=== PATIENT | female | born 1985 | race Caucasian/White ===

== ENCOUNTER 2020-08-02 09:07 | Outpatient (REF) | payer MEDICAID, SELFPAY | END 2020-08-02 09:08 | disposition home or self-care (01) | LOC: HO.LAB 09:07 | PROVIDERS: Visit Provider Internal Medicine | DX: Z20.828 Contact with and (suspected) exposure to other viral communicable diseases (principal) | CPT/HCPCS: 87635 ==

== ENCOUNTER 2020-08-26 11:31 | Outpatient (REF) | payer MEDICAID, SELFPAY ==
[2020-08-27 09:47] LABS: CT PCR NOT DETECTED (Not Detect.); NG PCR NOT DETECTED (Not Detect.)
[2020-08-27 13:53] LABS: BV Int Neg Control Negative (Negative); BV Int Pos Control Positive (Positive)
== END 2020-08-26 11:32 | disposition home or self-care (01) ==
LOC: HO.LAB 11:31
PROVIDERS: Visit Provider Obstetrics & Gynecology
DX: B00.9 Herpesviral infection, unspecified (principal); Z11.3 Encounter for screening for infections with a predominantly sexual mode of transmission; Z11.8 Encounter for screening for other infectious and parasitic diseases
CPT/HCPCS: 87480; 87491; 87510; 87591; 87660; 99202

== ENCOUNTER 2020-09-18 08:59 | Outpatient (REF) | payer MEDICAID, SELFPAY ==
[2020-09-19 11:09] LABS: BV Int Neg Control Negative (Negative); BV Int Pos Control Positive (Positive)
[2020-09-25 16:43] LABS: HPV mRNA E6/E7 Not Detected (Not Detected)
== END 2020-09-18 09:00 | disposition home or self-care (01) ==
LOC: HO.LAB 08:59
PROVIDERS: Visit Provider Obstetrics & Gynecology
DX: Z01.419 Encounter for gynecological examination (general) (routine) without abnormal findings (principal); L29.2 Pruritus vulvae
CPT/HCPCS: 81003; 87480; 87510; 87624; 87660; 88142

== ENCOUNTER 2020-12-11 07:51 | Outpatient (REF) | payer MEDICAID, SELFPAY ==
--- NOTE | ~2020-12-11 | XR_ITS ---
EXAMINATION: XR SHOULDER, RIGHT CLINICAL INFORMATION: Pain right shoulder. COMPARISON: None TECHNIQUE: AP external rotation, Grashey, scapular Y, and axillary views of the right shoulder. FINDINGS: The bones and soft tissues are normal. No fracture. Glenohumeral and acromioclavicular alignment is anatomic with normal joint space. No abnormal soft tissue calcifications. XR/XR shoulder RT min 2V Impression: Unremarkable right shoulder.
== END 2020-12-11 07:52 | disposition home or self-care (01) ==
LOC: HO.XRAY 07:51
PROVIDERS: Visit Provider Orthopaedic Surgery
DX: M25.511 Pain in right shoulder (principal)
CPT/HCPCS: 73030; 99202

== ENCOUNTER 2020-12-18 15:15 | Outpatient (REF) | payer MEDICAID, SELFPAY ==
[2020-12-19 09:22] LABS: BV Int Neg Control Negative (Negative); BV Int Pos Control Positive (Positive)
[2020-12-22 12:07] LABS: HPV mRNA E6/E7 rflx Not Detected (Not Detected)
== END 2020-12-18 15:16 | disposition home or self-care (01) ==
LOC: HO.LAB 15:15
PROVIDERS: Visit Provider Obstetrics & Gynecology
DX: Z01.419 Encounter for gynecological examination (general) (routine) without abnormal findings (principal); R87.615 Unsatisfactory cytologic smear of cervix; L29.2 Pruritus vulvae; N89.8 Other specified noninflammatory disorders of vagina; Z11.3 Encounter for screening for infections with a predominantly sexual mode of transmission; Z11.8 Encounter for screening for other infectious and parasitic diseases; Z86.19 Personal history of other infectious and parasitic diseases
CPT/HCPCS: 36415; 87480; 87510; 87624; 87660; 88142; 99212

== ENCOUNTER 2020-12-19 12:40 | Outpatient (REF) | payer MEDICAID, SELFPAY ==
--- NOTE | ~2020-12-19 | FL_ITS ---
EXAMINATION: XR ARTHROGRAM SHOULDER, RIGHT CLINICAL INFORMATION: Recurrent dislocation right shoulder with stability. COMPARISON: None. TECHNIQUE: Following explaining right shoulder arthrogram procedure, benefits and risks, a written consent was obtained. Patient was placed supine on the fluoroscopy table and the anterior aspect of right shoulder joint was cleaned and draped in usual sterile manner. 1% lidocaine was injected at the puncture site. A 22-gauge spinal needle was then inserted from the skin into the joint space and 2 mL of nonionic contrast was injected. A couple of images were obtained for documentation. Subsequently, 0.1 mL of gadolinium diluted with 10 mL of saline and 1% lidocaine was injected and needle withdrawn. Complete hemostasis was achieved at the puncture site. Sterile band-aid was applied postprocedure. Patient tolerated the procedure extremely well. Postprocedure, patient was sent to MRI for further imaging. FINDINGS: Several anterior images of right shoulder obtained under fluoroscopy reveal contrast in the joint space and infraglenoid bursa. The joint space is maintained. Visualized bones and soft tissues are normal. FLUOROSCOPY TIME: 1.8 min. DOSE AREA PRODUCT: 6.58 uGy-m2 (microgray-meter squared). FL/FL arthrogram shoulder RT IMPRESSION: Successful fluoroscopy-guided right shoulder injection of diluted gadolinium for MRI evaluation.
--- NOTE | ~2020-12-19 | MR_ITS ---
EXAMINATION: MR SHOULDER WITH CONTRAST, RIGHT CLINICAL INFORMATION: Right shoulder pain, recurrent dislocation COMPARISON: Radiographs 12/11/2020 TECHNIQUE: MRI of the shoulder was performed following the intra-articular administration of a dilute gadolinium-containing solution (arthrogram) on a high-field scanner. FINDINGS: ROTATOR CUFF: Minimal ill-defined undersurface tear of the supraspinatus tendon anteriorly in the region of the critical zone on coronal image 10, with contrast extending within the distal tendon fibers posteriorly. Coronal image 8 suggests there may be a tiny bursal surface communication with trace fluid in the overlying bursa. There is also ill-defined undersurface fraying of the infraspinatus tendon, with intrasubstance extension of contrast. No muscle atrophy or fatty infiltration. BICEPS: Normal. CORACOACROMIAL ARCH: The undersurface of the acromion is curved with no subacromial spur. The acromioclavicular joint is normal. LABRUM/CAPSULE: The anterior inferior labrum is torn, blunted and slightly displaced medially along the glenoid rim. GLENOHUMERAL JOINT/MARROW: There is cartilage loss along the anterior inferior glenoid rim. No glenoid fracture. Subtle flattening of the posterior superior humeral head presumably representing a chronic Hill-Sachs deformity. MR/MR shoulder RT w con IMPRESSION: Evidence of a right or anterior inferior shoulder dislocation with tearing of the anterior inferior labrum which is blunted and medially displaced along the glenoid rim. Adjacent cartilage defect of the glenoid rim and a subtle, chronic appearing Hill-Sachs deformity. Minimal ill-defined undersurface partial tearing of the supraspinatus and infraspinatus tendons with intrasubstance extension of contrast. There may be a tiny full-thickness perforation of the supraspinatus tendon.
== END 2020-12-19 12:41 | disposition home or self-care (01) ==
LOC: HO.XRAY 12:40
PROVIDERS: Visit Provider Orthopaedic Surgery
DX: M24.411 Recurrent dislocation, right shoulder (principal); M25.311 Other instability, right shoulder; M25.312 Other instability, left shoulder
CPT/HCPCS: 23350; 73040; 73222; A9585

== ENCOUNTER → 2020-12-27 09:30 | Outpatient (BNVA) | payer MEDICAID, SELFPAY | PROVIDERS: Visit Provider Orthopaedic Surgery | DX: M24.411 Recurrent dislocation, right shoulder (principal); M25.311 Other instability, right shoulder; M25.312 Other instability, left shoulder | CPT/HCPCS: 99212 ==

== ENCOUNTER → 2020-12-30 10:31 | Outpatient (BNVA) | payer MEDICAID, SELFPAY | PROVIDERS: Visit Provider Orthopaedic Surgery | DX: M24.411 Recurrent dislocation, right shoulder (principal) | CPT/HCPCS: 99212 ==

== ENCOUNTER 2021-01-02 09:00 | Outpatient (RCR) | payer MEDICAID, SELFPAY ==
--- NOTE | 2020-12-20 16:00 | MHC.PT.EP ---
[facility] [place] Office [place] Office [place] Office [address] Sarahi Hyde [address] [phone] F: [phone] F: [phone] F: [phone] F: [phone] Physical Therapy Plan of Care Date of Evaluation: 12/20/20 Date of Surgery: NA Diagnosis: B SHLDER INSTABILITY, RECURRENT DISLOCATION R SHLDER Assessment: Pt IS 35 YO RHD F WITH HX OF RECURRENT DISLOCATION R SHLDER (REPORTS FIRST HAPPENED ABOUT 8 YRS AGO) NO PT, R SHLDER HAS DISLOCATED WITH SELF RELOCATION ABOUT 5 TIMES SINCE THEN. REPORTS NOW SIGNIF LIMITATION WITH USE R UE WITH PAIN NOTED. PRESENTS WITH LIMITED ROM R SHLDER AND LIMITED R SHLDER STRENGTH. AWAITING RESULTS OF MRI (TO SEE ORTHO IN A WEEK). STARTED Pt WITH NAVEED EXERCISE AND TAPED R SHLDER FOR MDI. WILL PROGRESS PER MRI FINDINGS AND ORTHO RECOMMENDATION IN REGARD TO SURGERY VS NON SURGERY. Frequency and Duration: The patient will be seen 2X/WK X 6 WKS (DEPENDING ON MRI/ORTHO Short Term Goals: 1. INCREASED POSTURE AWARENESS AND AWARENESS SHLDER CARE 2. SELF/HOME ASSIST KT IF INDICATED 3. I HEP WITH DC EX PLAN Twister In Goals: 1. INCREASED R SHLDER ABD 10-20 DEGREES 2. INCREASED R SHLDER STRENGTH 1/2 MM GRADE 3. DECREASED PAIN R SHLDER AT LEAST 50% WITH ADLS 4. DECREASED DISLOCATION/FEELING OF DISLOCATION Treatment Plan: Modalities to reduce pain, spasms and effusion. Manual therapy to restore motion and function. Therapeutic exercise to improve strength and flexibility. Neuromuscular re-education for posture and balance. Therapeutic activities to return to functional activities of daily living. Electronically signed by: BILL DELEON PT Please sign and return to therapist. Thank you for your referral.
--- NOTE | 2021-04-10 10:04 | MHC.PT.DC ---
[facility] [place] Office [place] Office [place] Office [address] Sarahi Hyde [address] [phone] F: [phone] F: [phone] F: [phone] F: [phone] Physical Therapy Discharge Report Diagnosis: B SHLDER INSTABILITY, RECURRENT DISLOCATION R SHLDER Date of Surgery: NA Date of Evaluation: 12/20/20 Date of Discharge: 04/10/21 Treatments to Date: 3 Cancellations to Date: No Shows to Date: Discharge Status: Patient Elected to Stop Recommend MD Follow-up Discharge Summary: AT LAST SESSION PER NOTE BY [employer]ERRA [employer] HEEL ATTACHER [pt reports shoulder surgery scheduled for January 15. States at this time L sh. feels worse than Right. [ End ] questions holding PT until after surgery. ] NO FURTHER APPTS SCHEDULED. HAS BEGUN HOME PROGRAM Electronically signed by: BILL DELEON PT Please sign and return to therapist. Thank you for your referral.
== END 2021-04-10 10:05 | disposition home or self-care (01) ==
LOC: HO.PT 09:00
PROVIDERS: PCP Internal Medicine; Visit Provider Orthopaedic Surgery
DX: M25.311 Other instability, right shoulder (principal); M25.312 Other instability, left shoulder; M24.411 Recurrent dislocation, right shoulder
CPT/HCPCS: 97110; 97140; 97162; 97535

== ENCOUNTER 2021-01-15 06:54 | Day surgery (SDC) | payer MEDICAID, SELFPAY ==
[2021-01-09 14:00] VITALS: BMI 34.5
--- NOTE | 2021-01-14 10:10 | HO.ANESPROP2 ---
Documented by User: Bere Willoughby 01/14/21 10:10 HPI - Anesthesia Eval Consult details Narrative: 35yo F for Right Shoulder Arthroscopy with Capsular Plication PMFSH Active Problems Active Problems: All Active Problems (Updated 12/11/20 @ 10:06 by Bianca Villela MD) Instability of both shoulder joints (Acute) Recurrent dislocation, right shoulder (Acute) Vulvar itching (Acute) Past Medical History Medical History Asthma Herpes genitalis in women Well woman exam with routine gynecological exam Family History Family History Father Diabetes HTN (hypertension) Dementia Mother Diabetes HTN (hypertension) Anxiety Maternal Aunt Cancer Paternal Grandfather Alzheimer disease Surgical History Surgical History History of ankle surgery Social History Social History Household Members: Children Alcohol intake: never Smoking Status: Former smoker Use of substances other than those prescribed or required for medical reasons: No Substance Use Type: Marijuana Advance Directives: No Advance Directives Information Provided: Yes Current occupation: Right Handed - [employer] / [employer] Sexual orientation: Straight/Heterosexual Gender identity: female Meds Allergies Allergy/AdvReac Type Severity Reaction Status Date / Time No Known Allergies Allergy Verified 12/30/20 10:45 [No Known Allergies*] Home Medications Medication Instructions Recorded Confirmed Last Taken Type diphenhydramine HCl 25 mg capsule 25 mg PO TID PRN 08/26/20 Unknown History sertraline 100 mg tablet 100 mg PO DAILY 12/18/20 Unknown History trazodone 50 mg tablet 50 mg PO BEDTIME PRN 12/18/20 Unknown History Exam Exam Date and Time: January 14, 2021 1010 Height,Weight and Vital Signs: Height 5 ft Weight 80.286 kg Assessment and Plan Assessment Anesthesia Assessment: Chart Reviewed Documented by User: Edie Crystal 01/15/21 08:52 [facility] Past Medical History Medical History Asthma Herpes genitalis in women Well woman exam with routine gynecological exam Family History Family History Father Diabetes HTN (hypertension) Dementia Mother Diabetes HTN (hypertension) Anxiety Maternal Aunt Cancer Paternal Grandfather Alzheimer disease Surgical History Surgical History History of ankle surgery Social History Social History Household Members: Children Alcohol intake: never Smoking Status: Former smoker Use of substances other than those prescribed or required for medical reasons: No Substance Use Type: Marijuana Advance Directives: No Advance Directives Information Provided: Yes Current occupation: Right Handed - [employer] / [employer] Sexual orientation: Straight/Heterosexual Gender identity: female Meds Allergies Allergy/AdvReac Type Severity Reaction Status Date / Time No Known Allergies Allergy Verified 12/30/20 10:45 [No Known Allergies*] Home Medications Medication Instructions Recorded Confirmed Last Taken Type diphenhydramine HCl 25 mg capsule 25 mg PO TID PRN 08/26/20 Unknown History sertraline 100 mg tablet 100 mg PO DAILY 12/18/20 Unknown History trazodone 50 mg tablet 50 mg PO BEDTIME PRN 12/18/20 Unknown History Exam Airway Mallampati Class: I TM Dist: >3cm Neck ROM: Full Heart: RrR Lungs: CtA Assessment and Plan Assessment Anesthesia Assessment: Anesthesia Plan Discussed and Chart Reviewed Final Anesthetic Review NPO: Yes ASA Class: II Final Preanesthetic Review: No Changes in Pt Med Stat and Consent Obtained/Reviewed Patient Risk: Intermediate Procedure Risk: Intermediate Anesthetic Plan Anesthetic Plan: GA and Regional Block (Right scalene block) Disposition: Standard PACU
[2021-01-15] VITALS (8 sets, daily range): BP systolic 126–149; BP diastolic 82–96; PULSE 99–113; RESP 16–18; TEMP 36.1–36.8; O2SAT 95–99
[2021-01-15 07:19] LABS: UPreg QC Valid YES; Urine Pregnancy NEGATIVE (NEGATIVE)
[2021-01-15] MEDS: Lactated Ringers 1,000 ML 100 ML IVCONT (07:32)
--- NOTE | 2021-01-15 10:59 | P.BOP_ITS ---
Brief Operative Note Date of Service: 01/15/21 Pre-op diagnosis: right shoulder instability Post-op diagnosis: same Procedure: right shoulder capsular plication Implants: [employer] micropraptor X2 Surgeon: Kaushik Lainez MD Anesthesia: GETA and regional Loss Prevention Guard: Catarina Castaneda Estimated blood loss (mL): 5 Tourniquet time (min): 0 IV fluids (mL): 600 Pathology: none sent Condition: stable Disposition: PACU
--- NOTE | 2021-01-15 11:01 | W.PM.OPN ---
Operative Note Operative Note Date of Service: 01/15/21 Narrative: Pre-op diagnosis: right shoulder instability Post-op diagnosis: same Procedure: right shoulder capsular plication Implants: Peoples and nephew micropraptor X2 Surgeon: Kaushik Lainez MD Anesthesia: GETA and regional Automated [employer] Systems Technician: Catarina Castaneda Estimated blood loss (mL): 5 Tourniquet time (min): 0 IV fluids (mL): 600 Pathology: none sent Condition: stable Disposition: PACU Indications: this is a 35 yo F with recurrent instability of her right shoulder who was consented to undergo a right shoulder capsular plication Procedure in detail: Patient was brought to the operating room and placed the the beach chair position. All bony prominences were well padded and he was prepped and draped in standard sterile fashion. A time out was called to identify proper site, proper procedure and proper surgeon. IV antibiotics per weight were administered. She has 2+ anterior translation on stability testing. I began by making a posterolateral stab incision with a 15 blade. A blunt trochar was placed into the glenohumeral joint and insufflated the joint with saline and a 30 degree arthroscope was placed. I established an outside- in anterior portal just superior to the subscapularis tendon. I then began my inspection of the glenohumeral joint. There was a hill sachs lesion and a large drive though sign with an absent anterior labrum. Biceps anchor, superior and posterior labrum were intact. There was an intact rotator cuff and the subscapulais was intact I began by using a small treva to treva down the anterior face of the glenoid from 3-6 o:clock. Once this was done I used a suture passer to grab the inferior gh ligament and anterior capsular tissue. I then used a micro-raptor PEEK suture anchor at the 5 oclock position establishing a good bumper of tissue. I then repeated this at the three oclock position with two more suture tape through the anterior labro/capsular tissue. All anchors were buried in subchondral bone and the drive through sign was negative. I took my final pictures and removed all instrumentation. Nylon was used to close and the patient was placed in sterile dressing and extubated and brought to the recovery room in stable condition and there were no known complications.
[2021-01-15] MEDS: Ketorolac Tromethamine 15 MG/ML VIAL IVPUSH (12:21)
[2021-01-15] MEDS: oxyCODONE HCl Immed Release 5 MG TABLET PO (12:21)
--- NOTE | 2021-01-15 13:43 | PC.NURSE ---
Patient advised to call MD office regarding prescription for oxycodone. Pt states it was not covered by insurance according to [facility] pharmacy. [facility] stated MD needed to send Authorization
== END 2021-01-15 13:20 | disposition home or self-care (01) ==
PROVIDERS: Nurse Practitioner; Visit Provider Orthopaedic Surgery
PROC: (CPT 29805; principal; 2021-01-15 08:30)
DX: M24.411 Recurrent dislocation, right shoulder (principal); M25.311 Other instability, right shoulder
CPT/HCPCS: 29806; 81025; J0171; J0690; J1100; J1885; J2250; J2405; J3010

== ENCOUNTER → 2021-01-23 13:11 | Outpatient (BNVA) | payer MEDICAID, SELFPAY | PROVIDERS: Visit Provider Physician Assistant | DX: M24.411 Recurrent dislocation, right shoulder (principal) | CPT/HCPCS: 99212 ==

== ENCOUNTER → 2021-02-27 10:44 | Outpatient (BNVA) | payer MEDICAID, SELFPAY | PROVIDERS: PCP Internal Medicine; Visit Provider Orthopaedic Surgery | DX: M24.411 Recurrent dislocation, right shoulder (principal); M25.311 Other instability, right shoulder; M25.312 Other instability, left shoulder | CPT/HCPCS: 99212 ==

== ENCOUNTER 2021-03-06 10:00 | Outpatient (RCR) | payer MEDICAID, SELFPAY ==
--- NOTE | 2021-02-10 10:25 | MHC.PT.EP ---
[facility] [place] Office [place] Office [place] Office [address] Sarahi Hyde [address] [phone] F: [phone] F: [phone] F: [phone] F: [phone] Physical Therapy Plan of Care Date of Evaluation: Date of Surgery: 01/15/21 Diagnosis: Recurrent dislocation, R shoulder S/P R shoulder capsular plication 01/15/21 Assessment: 35 year old female referred for s/p R shoulder capsular plication following recurrent shoulder dislocation . She is 4.5 weeks post op today. On PT examination she presented with TTP along medial border of R scapula, decreased shoulder ROM due to pain, decreased shoulder and scap muscle strength, altered posture, and altered GH rhythm. She would benefit from skilled PT to address the aforementioned impairments to increase tolerance to ADLS like dressing, over head reaching, cleaning, cooking and return to PLOF. She is very motivated to participate in therapy. Frequency and Duration: The patient will be seen 2/ week for 10 weeks Short Term Goals: 1. Pt will have no spasms in R shoulder which will enable her to sit for 30 minutes in 3 weeks. 2. Pt will be able to move shoulder through full plane of motion without any pain which will enable her to dress in 5 weeks. Half-Way Goals: 1. Pt will demonstrate an increase in muscle strength by 1 grade which will enable her to perform ADLS without pain in 7 weeks. 2. Pt will demonstrate good GH rhyhtm which will enable her to perform IADLS like cleaning and cooking without pain in 8 weeks. 3. Pt will be able to perform all work activities without pain in 9 weeks. 2. Pt will be independent with all HEPS for symptom management, and maintenance following d/c in 10 weeks. Treatment Plan: Modalities to reduce pain, spasms and effusion. Manual therapy to restore motion and function. Therapeutic exercise to improve strength and flexibility. Neuromuscular re-education for posture and balance. Therapeutic activities to return to functional activities of daily living. Electronically signed by: Aye Field, PT, DPT Please sign and return to therapist. Thank you for your referral.
--- NOTE | 2021-03-27 10:21 | MHC.PT.DC ---
[facility] Office [place] Office [place] Office [address] Sarahi Hyde 140 [facility] [phone] F: [phone] F: [phone] F: [phone] F: [phone] Physical Therapy Discharge Report Diagnosis: Recurrent dislocation, R shoulder S/P R shoulder capsular plication 01/15/21 Date of Surgery: 01/15/21 Date of Evaluation: 02/10/21 Date of Discharge: 03/27/21 Treatments to Date: 5 Cancellations to Date: 2 No Shows to Date: 7 Discharge Status: Visit Non-compliance Discharge Summary: Per [facility] policy the patient is to be discharged for visit non-compliance. Her current post-operative status is unknown. Electronically signed by: Edie Chau PT, DPT Please sign and return to therapist. Thank you for your referral.
== END 2021-03-27 10:22 | disposition other institution (70) ==
LOC: HO.PT 10:00
PROVIDERS: PCP Internal Medicine; Visit Provider Physician Assistant
DX: M24.411 Recurrent dislocation, right shoulder (principal)
CPT/HCPCS: 97110; 97112; 97161

== ENCOUNTER → 2021-04-07 10:07 | Outpatient (BNVA) | payer MEDICAID, SELFPAY | PROVIDERS: Visit Provider Orthopaedic Surgery | DX: M24.411 Recurrent dislocation, right shoulder (principal) | CPT/HCPCS: 99212 ==

== ENCOUNTER 2021-09-22 08:37 | Outpatient (REF) | payer MEDICAID, SELFPAY ==
[2021-09-22 15:16] LABS: CT PCR NOT DETECTED (Not Detect.); NG PCR NOT DETECTED (Not Detect.)
[2021-09-23 11:02] LABS: BV Int Neg Control Negative (Negative); BV Int Pos Control Positive (Positive)
== END 2021-09-22 08:38 | disposition home or self-care (01) ==
LOC: HO.LAB 08:37
PROVIDERS: Visit Provider Advanced Practice Midwife
DX: Z01.419 Encounter for gynecological examination (general) (routine) without abnormal findings (principal); B00.9 Herpesviral infection, unspecified; L29.2 Pruritus vulvae; Z20.2 Contact with and (suspected) exposure to infections with a predominantly sexual mode of transmission
CPT/HCPCS: 87480; 87491; 87510; 87591; 87660

== ENCOUNTER 2021-09-29 12:03 | Outpatient (REF) | payer MEDICAID, SELFPAY ==
--- NOTE | ~2021-09-29 | XR_ITS ---
EXAMINATION: XR ANKLE, LEFT CLINICAL INFORMATION: Left ankle pain. COMPARISON: None TECHNIQUE: AP, lateral, and mortise views of the left ankle. FINDINGS: Lateral plate and screw fixation construct at the distal fibula is intact. There is a healed fibular fracture with normal anatomic alignment. Tibial plafond fixation screw is intact. Ankle mortise is symmetric. Joint spaces are well preserved. Punctate osseous fragments at the tip of the medial malleolus suggest prior deltoid ligament injury. A large os trigonum is noted. Subtalar joint is unremarkable. XR/XR ankle LT min 3V IMPRESSION: 1. Healed distal fibular and tibial fractures. 2. Left ankle and subtalar joints appear relatively well preserved. 3. Large os trigonum.
== END 2021-09-29 12:04 | disposition home or self-care (01) ==
LOC: HO.HOSX 12:03
PROVIDERS: Visit Provider Orthopaedic Surgery
DX: M25.572 Pain in left ankle and joints of left foot (principal); Z98.890 Other specified postprocedural states
CPT/HCPCS: 73610; 99202

== ENCOUNTER 2022-01-16 13:12 | Outpatient (REF) | payer MEDICAID, SELFPAY ==
[2022-01-16 15:06] LABS: HCG Quantitative < 2 mIU/mL
== END 2022-01-16 13:13 | disposition home or self-care (01) ==
LOC: HO.LAB 13:12
PROVIDERS: PCP Internal Medicine; Visit Provider Advanced Practice Midwife
DX: E11.65 Type 2 diabetes mellitus with hyperglycemia (principal); N92.6 Irregular menstruation, unspecified
CPT/HCPCS: 36415; 81025; 84702; 99202

== ENCOUNTER → 2022-05-22 13:02 | Outpatient (BNVA) | payer MEDICAID, SELFPAY | PROVIDERS: PCP Internal Medicine; Visit Provider Advanced Practice Midwife | DX: Z32.01 Encounter for pregnancy test, result positive (principal); N92.6 Irregular menstruation, unspecified | CPT/HCPCS: 81025; 99202 ==

== ENCOUNTER 2023-07-12 14:56 | Outpatient (REF) | payer MEDICAID, SELFPAY ==
[2023-07-13 12:43] LABS: Influenza A PCR NEGATIVE (Negative); Influenza B PCR NEGATIVE (Negative); Resp Syncy Virus RNA Qual PCR NEGATIVE (Negative); SARS COV2 PCR INHOUSE NEGATIVE (Negative)
== END 2023-07-12 14:57 | disposition home or self-care (01) ==
LOC: HO.HHCLNP 14:56
PROVIDERS: Visit Provider Internal Medicine
DX: R68.89 Other general symptoms and signs (principal); Z11.52 Encounter for screening for COVID-19
CPT/HCPCS: 0241U; 87070; 87147

== ENCOUNTER 2024-01-03 13:29 | Outpatient (REF) | payer MEDICAID, SELFPAY ==
[2024-01-03 16:10] LABS: MANUAL DIFF FLAG NO
[2024-01-03 16:22] LABS: Basophils Percent Auto 0.5 % (0-2); Eosinophils Absolute Auto 0.3 X10*3/uL (0.0-0.4); Eosinophils Percent Auto 4.4 % (0-4); Hematocrit 40.8 % (37.0-47.0); Hemoglobin 13.1 g/dl (12.0-16.0); Imm Gran Abs Auto 0.02 X10*3/uL (0.00-0.03); Imm Gran Pct Auto 0.4 % (0.0-0.4); Lymphocytes Absolute Auto 2.1 X10*3/uL (1.2-4.9); Lymphocytes Percent Auto 36.8 % (20-40); Mean Corpuscular HGB Conc 32.1 g/dl (31.0-35.0); Mean Corpuscular Hemoglobin 27.5 pg (27.0-33.0); Mean Corpuscular Volume 85.7 fL (80.0-98.0); Mean Platelet Volume 11.2 fL (9.4-12.3); Monocytes Absolute Auto 0.4 X10*3/uL (0.1-1.2); Monocytes Percent Auto 6.2 % (2-11); Neutrophils Absolute Auto 2.9 x10*3/uL (2.0-8.3); Neutrophils Percent Auto 51.7 % (45-73); Platelet Count 218 X10*3/uL (160-400); Red Blood Count 4.76 X10*6/uL (4.20-5.50); Red Cell Distribution Width 12.5 % (11.0-16.0); White Blood Count 5.6 X10*3/uL (4.8-10.8)
[2024-01-03 16:58] LABS: Alanine Aminotransferase 11 U/L (0-31); Albumin Level 4.3 g/dL (3.5-5.0); Alkaline Phosphatase 100 U/L (39-117); Anion Gap 10 (12-20); Aspartate Amino Transferase 14 U/L (5-31); Bilirubin Direct 0.1 mg/dL (0.0-0.5); Bilirubin Total 0.3 mg/dL (0.0-1.0); Blood Urea Nitrogen 20 mg/dL (9-16); Calcium 9.2 mg/dL (8.4-10.2); Carbon Dioxide 26 mmol/L (22-29); Chloride 106 mmol/L (96-108); Cholesterol 141 mg/dL (<200); Estimated Glomerular Filt Rate > 60; Glucose Random 174 mg/dL (60-115); HDL Cholesterol 26 mg/dL (>40); LDL Cholesterol Calculated 73 mg/dL (<100); Potassium 3.9 mmol/L (3.3-5.1); Sodium 138 mmol/L (135-145); Total Protein 7.5 g/dL (6.5-8.0); Triglycerides 213 mg/dL (<150)
[2024-01-03 17:17] LABS: TSH reflex Free T4 0.46 uIU/mL (0.32-4.0)
[2024-01-06 07:48] LABS: TS Negative Control Passed; TS Panel A 0; TS Panel B 0; TS Positive Control Passed; TSpotTB Negative (Negative)
== END 2024-01-03 13:30 | disposition home or self-care (01) ==
LOC: HO.HHCL 13:29
PROVIDERS: Visit Provider Internal Medicine
DX: E11.65 Type 2 diabetes mellitus with hyperglycemia (principal); Z11.1 Encounter for screening for respiratory tuberculosis; Z79.4 Long term (current) use of insulin
CPT/HCPCS: 36415; 80048; 80061; 80076; 84443; 85025; 86481

== ENCOUNTER 2024-04-06 13:10 | Outpatient (REF) | payer MEDICAID, SELFPAY ==
--- NOTE | ~2024-04-06 | MM_ITS ---
EXAMINATION: MM DIAGNOSTIC DIGITAL BREAST TOMOSYNTHESIS, BILATERAL ULTRASOUND: RIGHT. CLINICAL INFORMATION: 38-year-old female, 2 weeks ago complaining of mastitis/infection of right areola, and was seen in the [facility] ER. She was given antibiotics at that time, and mastitis and infection have cleared. She states persistent mild clear followed by yellow nipple discharge. Please evaluate. COMPARISON: Mammography: No prior. Baseline exam. TECHNIQUE: Digital breast tomosynthesis is performed in both the craniocaudal and mediolateral oblique views along with computer-aided detection (CAD). Synthesized 2D images are generated from the tomosynthesis. This was followed by targeted ultrasound of the right retroareolar region. FINDINGS: There are scattered areas of fibroglandular density (ACR BI-RADS breast composition Category b). There are no suspicious masses, suspicious grouped calcifications, or areas of architectural distortion in either breast. There is no skin or axillary abnormality. No retroareolar abnormalities are noted in the right breast to explain nipple discharge. We will evaluate this area with ultrasound. ULTRASOUND: CLINICAL INFORMATION: As above. Discharge right nipple, clear than yellow. COMPARISON: No prior. TECHNIQUE: Targeted sonographic evaluation right breast was performed using a high frequency linear transducer. Attention was focused of the right breast retroareolar region. Selected archived documentation. FINDINGS: RIGHT BREAST: There are a few mildly dilated ducts in the right retroareolar region, which appear to have a small amount of inspissated debris contained within. No definite masses although one duct in particular stands out slightly, measuring 5 x 3 mm. This is most likely post infectious debris as well. To be cautious, we will follow this in 6 months with targeted right breast ultrasound to ensure resolution. If persistent at time, we will recommend biopsy. No masses, no abnormal shadowing, additional cystic abnormalities, or parenchymal distortion identified in the retroareolar right breast. No skin thickening or abnormal fluid collection. MM/MM tomosynthesis diagnostic BI IMPRESSION: -There are no findings suspicious for malignancy in either breast. -Probably benign dilated duct filled with debris in the retroareolar region of the right breast, especially in light of recent infection. Six-month interval follow-up targeted right breast ultrasound recommended to assess for expected resolution. -If the patient has continued right nipple discharge, we could reassess this area with ultrasound earlier a second time. OVERALL ASSESSMENT: Mammography: BI-RADS 3 - Probably benign finding(s) - 6 month follow-up suggested Ultrasound: BI-RADS 3 - Probably benign finding(s) - 6 month follow-up suggested RECOMMENDATION: 6 Month F/U This patient's information was entered into a reminder system with a target due date for their next mammogram.
== END 2024-04-06 13:11 | disposition home or self-care (01) ==
LOC: HO.MAMMO 13:10
PROVIDERS: PCP Internal Medicine; Visit Provider Family Medicine
DX: N64.4 Mastodynia (principal); N60.01 Solitary cyst of right breast
CPT/HCPCS: 76642; 77062; 77066

== ENCOUNTER → 2024-04-06 14:00 | Outpatient (BNV) | payer MEDICAID, SELFPAY | PROVIDERS: PCP Internal Medicine; Visit Provider Radiology Diagnostic Radiology | DX: N64.52 Nipple discharge (principal); N60.41 Mammary duct ectasia of right breast | CPT/HCPCS: 76642; 77062; 77066 ==

== ENCOUNTER 2024-09-12 17:42 | Outpatient (REF) | payer MEDICAID, SELFPAY ==
[2024-09-13 07:25] LABS: CT PCR NOT DETECTED (Not Detect.); NG PCR NOT DETECTED (Not Detect.)
[2024-09-13 11:22] LABS: Bacterial Vaginosis PCR POSITIVE (Negative); Candida Group PCR DETECTED (Not Detect); Candida glab krusei PCR NOT DETECTED (Not Detect); Trichomonas vaginalis PCR NOT DETECTED (Not Detect)
== END 2024-09-12 17:43 | disposition home or self-care (01) ==
LOC: HO.HHCLNP 17:42
PROVIDERS: Visit Provider Family Medicine
DX: N89.8 Other specified noninflammatory disorders of vagina (principal)
CPT/HCPCS: 0352U; 87491; 87591

== ENCOUNTER 2025-03-06 09:56 | Outpatient (REF) | payer MEDICAID, SELFPAY ==
--- NOTE | ~2025-03-06 | MM_ITS ---
EXAMINATION: MM DIAGNOSTIC DIGITAL BREAST TOMOSYNTHESIS, BILATERAL Right limited ultrasound. CLINICAL INFORMATION: Right yellowish clear nipple discharge follow-up recommended. COMPARISON: Mammography: Comparison is made with relevant prior exams. TECHNIQUE: Digital breast mammography with tomosynthesis is performed in both the craniocaudal and mediolateral oblique views along with computer-aided detection (CAD). FINDINGS: There are scattered areas of fibroglandular density (ACR BI-RADS breast composition Category b). There are no significant masses, abnormal calcifications, or other abnormalities. Targeted color Doppler ultrasound in the right breast scanning in the retroareolar region demonstrates an ectatic duct. There is no intraductal mass and minimal ductal debris. Results are provided to the patient at time of visit by the technologist. MM/MM tomosynthesis diagnostic BI IMPRESSION: Left: Negative. Right: Ectatic duct with minimal internal debris in the retroareolar region at site of patient's yellow nipple discharge. Recommend ultrasound follow-up in one year when the patient will be due for bilateral mammography. Patient has a family history of breast cancer including maternal aunt. Breast MRI could be considered for further evaluation. Breast MRI would need to be ordered by the patient's providing clinician. ASSESSMENT: BI-RADS BI-RADS 3 - Probably benign finding(s) - 12 month follow-up suggested RECOMMENDATION: 12 month diagnostic follow up This patient's information was entered into a reminder system with a target due date for their next mammogram. Electronically signed by: Linda Amato DO 03/06/2025 10:59 AM EDT
--- OUTSIDE RECORDS SUMMARY | 2025-03-06 10:34 | XMS_ITS | Encounter Summary ---
Author Organization [employer] Address [address] [place] [address] Care Team Providers Care Blower Operator Name Role Phone Kiersten Hankins MD Primary Care Provide r Reason for Visit * Reason Onset Date Comments Med Refill 08/29/2024 Encounter Details Date Type Department Care Team ([facility] st Contact Info) Description 08/29/2024 Telephone [facility] [address] [place], [place] [id number] Kiersten Hankins MD [address] [place] [address] Med Refill Social History Tobacco Use Types Packs/Day Years Used Date Smoking Tobacco: Never Passive Smoke Exposure: Never Smokeless Tobacco: Never Depression Answer Date Recorded Patient Health Questionnaire-9 Score 9 03/24/2024 Patient Health Questionnaire-9 Score 9 03/24/2024 Last PHQ-9: Questionnaire Data Not on file 0 03/24/2024 Housing Stability Answer Date Recorded What is your housing situation today? I have alyssa lamar 12/28/[address] you li ve. Do you have problems with any of the following? None of the above 12/28/2023 Food Insecurity Answer Date Recorded Within the past 12 months, y ou worried that your food would run out before you got money to buy more: Never True 12/28/2023 Within the past 12 months,th e food you bought just didn't last and you didn't have enough money to get more: Never True Transportation Answer Date Recorded In the past 12 months, has l ack of transportation kept you from medical appts, meetings, work or from getting things needed for daily living? No 12/28/2023 Utilities Answer Date Recorded In the past 12 months, has t he electric, gas, oil or water company threatened to shut off services in your home? No 12/28/2023 Depression Answer Date Recorded Patient Health Questionnaire-2 Score 2 03/24/2024 Comments Unknown Sex and Gender Information Value Date Recorded Sex Assigned at Female 08/10/2022 10:31 AM EDT Legal Sex Female 10:31 AM EDT Gender Identity Female 08/10/2022 10:31 AM EDT Sexual Orientation Straight 08/10/2022 10 :31 AM EDT documented as of this encounter Miscellaneous Notes * Telephone Encounter - Lyric Chan LPN - 08/29/2024 10:23 AM EST Medication pended to PCP. * Telephone Encounter - Gabby Mcmillan - 08/29/2024 10:08 AM EST TC from pt requesting medication refill. Medications needing refill : valACYclovir (Valtrex) 500 MG tablet To be sent to: [id number] documented in this encounter Plan of Treatment Not on file documented as of this encounter Visit Diagnoses Not on filedocumented in this encounter Additional Health Concerns Assessment Noted Time PHQ-9 Depression Total Score: 9 03/24/20 24 3:22 PM EDT documented as of this encounter Care Teams Blower Operator Relationship Specialty Start Date End Date Kiersten Hankins MD [address] [place] [address] PCP - General Internal Medicine 05/20/23 documented as of this encounter
== END 2025-03-06 09:57 | disposition home or self-care (01) ==
LOC: HO.MAMMO 09:56
PROVIDERS: PCP Internal Medicine; Visit Provider Internal Medicine
DX: N61.0 Mastitis without abscess (principal)
CPT/HCPCS: 76642; 77062; 77066

== ENCOUNTER → 2025-03-06 10:30 | Outpatient (BNV) | payer MEDICAID, SELFPAY | PROVIDERS: PCP Internal Medicine; Visit Provider Internal Medicine | DX: N64.52 Nipple discharge (principal) | CPT/HCPCS: 76642; 77062; 77066 ==

== ENCOUNTER 2025-05-18 14:00 | Outpatient (REF) | payer MEDICAID, SELFPAY ==
[2025-05-18 17:51] LABS: MANUAL DIFF FLAG NO
[2025-05-18 18:03] LABS: Hematocrit 39.5 % (37.0-47.0); Hemoglobin 13.2 g/dl (12.0-16.0); Imm Gran Abs Auto 0.02 X10*3/uL (0.00-0.03); Imm Gran Pct Auto 0.3 % (0.0-0.4); Lymphocytes Absolute Auto 2.4 X10*3/uL (1.2-4.9); Mean Corpuscular HGB Conc 33.4 g/dl (31.0-35.0); Mean Corpuscular Hemoglobin 27.4 pg (27.0-33.0); Mean Corpuscular Volume 82.0 fL (80.0-98.0); NRBC Abs Auto 0.000 X10*3/uL (0.0-0.012); NRBC Pct Auto 0.0 /100WBC (0.0-0.2); Platelet Count 225 X10*3/uL (160-400); Red Blood Count 4.82 X10*6/uL (4.20-5.50); White Blood Count 6.0 X10*3/uL (4.8-10.8)
[2025-05-18 18:14] LABS: Alanine Aminotransferase 27 U/L (0-31); Albumin Level 4.6 g/dL (3.5-5.0); Alkaline Phosphatase 97 U/L (39-117); Anion Gap 12 (12-20); Aspartate Amino Transferase 23 U/L (5-31); Blood Urea Nitrogen 13 mg/dL (9-16); Calcium 9.4 mg/dL (8.4-10.2); Carbon Dioxide 26 mmol/L (22-29); Chloride 103 mmol/L (96-108); Estimated Glomerular Filt Rate > 60; Potassium 3.7 mmol/L (3.3-5.1); Sodium 137 mmol/L (135-145); Total Protein 7.7 g/dL (6.5-8.0)
[2025-05-18 19:06] LABS: Microalbum/Creatinine Ratio Ur 10.8 ug/mg cr (<30)
[2025-05-21 08:25] LABS: HBS Num1 1.11 mIU/mL (0-7.99); HBc Num1 0.07 S/CO (0.00-0.79); HBsAGNum1 0.41 S/CO (0.00-0.99); Hepatitis A Antibody IgM 0.16 Index (0-0.79); Hepatitis B Surface Antigen Negative (Negative); ~HepC Num1 0.13 S/CO (0.00-0.79); ~Hepatitis A Antibody IgM Nonreactive (Nonreactive); ~Hepatitis B Surface Antibody NONREACTIVE (Nonreactive); ~Hepatitis C Antibody Nonreactive (Nonreactive)
[2025-05-29 08:21] LABS: Canary Droppings Ab NEGATIVE; Chicken Serum Ab NEGATIVE; Cockatiel Droppings Ab NEGATIVE; Finch Droppings Ab NEGATIVE; Parakeet Droppings Ab NEGATIVE; Parakeet Serum Ab POSITIVE; Parrot Droppings Ab NEGATIVE; Parrot Serum Ab POSITIVE; Pigeon/Dove Droppings Ab NEGATIVE
[2025-05-29 08:22] LABS: Pigeon/Dove Serum Ab NEGATIVE
[2025-05-31 09:04] LABS: Class Cockroach 2; Class Mouse Urine Protein 0/1; I006-IgE Cockroach, German 1.72
[2025-05-31 09:05] LABS: Class Cat Dander 3; Class Dermatophagoides farinae 3; Class Dog Dander 4; Class Timothy Grass 0; D002 - IgE D farinae 5.49; E001 - IgE Cat Dander 4.31; E005 - IgE Dog Dander 18.70; G006 - IgE Timothy Grass <0.10
[2025-05-31 09:06] LABS: Class Aspergillus fumigatus 0; Class Cladosporium herbarum 0; M002 - IgE Cladosporium herbar <0.10; M003 - IgE Aspergillus fumigat <0.10; M006 - IgE Alternaria alternat <0.10
[2025-05-31 09:07] LABS: Class Alternaria alternata 0; Class Mountain Cedar 0; Class Oak 0; Class Sycamore 0; Class Walnut Tree 0; T006 - IgE Cedar, Mountain <0.10; T007 - IgE Oak, White <0.10; T010 - IgE Walnut <0.10; T011 - IgE Maple Leaf Sycamore <0.10
[2025-05-31 09:08] LABS: Class Cottonwood 0; Class White Ash 0; Class White Mulberry 0; T014 - IgE Cottonwood <0.10; T015 - IgE Ash, White <0.10; T070 - IgE White Mulberry <0.10; W001 - IgE Ragweed, Short 0.15
[2025-05-31 09:10] LABS: Class Common Ragweed 0/1; Class Mugwort 0; W006 - IgE Mugwort <0.10
[2025-05-31 09:11] LABS: Class Bermuda Grass 0; Class Derm. pterony 3; Class Penicillium crysogenum 0
[2025-05-31 09:12] LABS: Class Birch 0; Class Elm 0; Class Maple Box Elder 0; Class Rough Pigweed 0; Class Sheep Sorrel 0; T001 IgE Maple/Box Elder <0.10; T008 IgE Elm, American <0.10; W014 IgE Pigweed, Common <0.10; W018 IgE Sheep Sorrel <0.10
== END 2025-05-18 14:01 | disposition home or self-care (01) ==
LOC: HO.WFDLDS 14:00
PROVIDERS: PCP Internal Medicine; Referring Provider Registered Nurse; Visit Provider Nurse Practitioner Family
DX: J45.909 Unspecified asthma, uncomplicated (principal); E11.65 Type 2 diabetes mellitus with hyperglycemia; Z79.4 Long term (current) use of insulin; Z91.09 Other allergy status, other than to drugs and biological substances; Z11.3 Encounter for screening for infections with a predominantly sexual mode of transmission; Z11.59 Encounter for screening for other viral diseases
CPT/HCPCS: 36415; 80053; 82043; 82570; 82785; 85025; 86003; 86331; 86704; 86706; 86709; 86803; 87340; 99212

== ENCOUNTER 2025-05-18 14:00 | Outpatient (AMB) | payer MEDICAID, SELFPAY ==
--- OUTSIDE RECORDS SUMMARY | 2025-05-18 14:02 | XMS_ITS | Clinical Summary ---
Author Organization [facility] Address [address] [place] [address] Care Team Providers Care Assistant Property Manager Name Role Phone Unavailable Primary Care Provider Unavailabl e Source Comments PLEASE NOTE, if this patient is a minor, it may be UNLAWFUL to discuss sensitive information that is contained in these records (such as FAMILY PLANNING, MENTAL HEALTH or SUBSTANCE ABUSE) with the minor patient's parent or other person without the patient's specific authorization.[facility] Social History Tobacco Use Types Packs/Day Years Used Date Smoking Tobacco: Never Assessed Comments Unknown Sex and Gender Information Value Date Recorded Sex Assigned at Female 04/12/2025 4:59 AM PDT Legal Sex Female 4:59 AM PDT Gender Identity Female 04/12/2025 4:59 AM PDT Sexual Orientation Not on file Plan of Treatment Upcoming Encounters Date Type Department Care Team (Late st Contact Info) Description 06/07/2025 11:00 AM EDT Behavioral Health Visit [facility] [address] [place] [address] Pooja Roberts APRN [address] [place] [address] Health Maintenance Due Date Last Done Comments Anxiety Screening 1987 HPV Screening 1987 Hepatitis C Screening 1987 Pap + HPV 1987 Tobacco Screening 1987 Relationship Safety Screening/Counseling 2002 Hypertension Screening (#1) 2005 Imm-Hepatitis B (1 of 3 - 19 + 3-dose series) 2006 Cervical Cancer Screening 2008 Pap Smear 2008 [id number] ( season) 2024 12/28/2023, 09/10/2021, 11/25/2020, Additional history exists Alcohol and Drug Screen 10/11/2024 Depression Annual Screen 10/11/2024 Imm-Influenza (#1) 2025 07/01/2021, 07/02/2020 Diabetes Screening 04/02/2028 04/02/2025, 01/04/2025 Imm-DTaP/Tdap/Td (4 - Td or Tdap) 11/13/2032 11/13/2022, 06/18/2021, 03/10/2017 HIV Screening Completed 03/02/2022, 03/02/2022 Cervical Ablation/Cold-Knife Conization Discontinued Cervical Cryotherapy Discontinued Colposcopy Discontinued Endometrial Biopsy Discontinued Excision/Leep Discontinued HPV Genotyping Discontinued Vaginal Pap Discontinued Vulvoscopy Discontinued Insurance [facility]
--- OUTSIDE RECORDS SUMMARY | 2025-05-18 14:02 | XMS_ITS | Encounter Summary ---
Author Organization [employer] Address [address] [facility] [address] [place] [address] Care Team Providers Care Tool Liaison Name Role Phone Kiersten Hankins MD Primary Care Provide r Reason for Visit * Reason Onset Date Comments Med Refill No Show 03/30/2025 Pt no show for s ick on site Encounter Details Date Type Department Care Team ([facility] st Contact Info) Description 03/30/2025 Refill [facility] [address] [place], [place] [phone] Kiersten Hankins MD [address] [place] [address] Type 2 diabetes mellitus with hyperglycemia, with long-term current use of insulin ([facility]) Social History Tobacco Use Types Packs/Day Years Used Date Smoking Tobacco: Never Passive Smoke Exposure: Never Smokeless Tobacco: Never Depression Answer Date Recorded Patient Health Questionnaire-9 Score 0 01/04/2025 Patient Health Questionnaire-9 Score 0 01/04/2025 Last PHQ-9: Questionnaire Data Not on file 0 01/04/2025 Housing Stability Answer Date Recorded What is your housing situation today? I have alyssaanish lamar 01/04/[address] you li ve. Do you have problems with any of the following? None of the above 01/04/2025 Food Insecurity Answer Date Recorded Within the past 12 months, y ou worried that your food would run out before you got money to buy more: Never True 01/04/2025 Within the past 12 months,th e food you bought just didn't last and you didn't have enough money to get more: Never True Transportation Answer Date Recorded In the past 12 months, has l ack of transportation kept you from medical appts, meetings, work or from getting things needed for daily living? No 01/04/2025 Utilities Answer Date Recorded In the past 12 months, has t he electric, gas, oil or water company threatened to shut off services in your home? No 01/04/2025 Depression Answer Date Recorded Patient Health Questionnaire-2 Score 0 01/04/2025 Internet Access Answer Date Recorded Internet Access Q1 Yes 01/04/2025 Internet Access Q2 Not on file 01/04/2025 Comments Unknown Sex and Gender Information Value Date Recorded Sex Assigned at Female 08/10/2022 10:31 AM EDT Legal Sex Female 10:31 AM EDT Gender Identity Female 08/10/2022 10:31 AM EDT Sexual Orientation Straight 08/10/2022 10 :31 AM EDT documented as of this encounter Miscellaneous Notes * Telephone Encounter - Elsie Foreman - 03/30/2025 2:32 PM EDT Pt no show for sick on site documented in this encounter Plan of Treatment Upcoming Encounters Date Type Department Care Team (Late st Contact Info) Description 07/03/2025 9:15 AM EDT Office Visit [facility] [address] [place] [address] Kiersten Hankins MD [address] [place] [address] documented as of this encounter Visit Diagnoses Diagnosis Type 2 diabetes mellitus with hyperglycemia, with long-term current use of insulin ([facility]) documented in this encounter Additional Health Concerns Assessment Noted Time PHQ-9 Depression Total Score: 0 01/05/20 25 1:18 PM EDT documented as of this encounter Care Teams Tool Liaison Relationship Specialty Start Date End Date Kiersten Hankins MD [address] [place] [address] PCP - General Internal Medicine 05/20/23 documented as of this encounter
--- OUTSIDE RECORDS SUMMARY | 2025-05-18 14:02 | XMS_ITS | Clinical Summary ---
Author Organization [address] [facility] Address [address] [place] [address] Phone Care Team Providers Care Plastic Injection Mold Maker Name Role Phone Kiersten Hankins MD Primary Care Provide r Social History Tobacco Use Types Packs/Day Years Used Date Smoking Tobacco: Never Assessed Comments Unknown Sex and Gender Information Value Date Recorded Sex Assigned at Not on file Legal Sex Female 8:57 PM EST Gender Identity Not on file Sexual Orientation Not on file Plan of Treatment Upcoming Encounters Date Type Department Care Team ([facility] Contact Info) Description 06/28/2025 9:30 AM EDT Consult Orthopedic Surgery - [place] [id number] [id number] Toby Soto, DPM [address] [address] Health Maintenance Due Date Last Done Comments Diabetes: Annual GFR (Glomer ular Filtration Rate) 1987 Diabetes: Annual Foot Exam 1997 Diabetes: Annual Retina Eye Exam 1997 DTaP,Tdap,and Td Vaccines (1 - Tdap) 2006 Hepatitis B Vaccines (1 of 3 - 19+ 3-dose series) 2006 Pneumococcal Vaccine: Pediat rics (0 to 5 Years) and At-Risk Patients (6 to 49 Years) (1 of 2 - PCV) 2006 Cervical Cancer Screening: P ap Smear 2008 Cholesterol Screening (Lipid Panel) 11/05/2023 HIV Screening 11/05/2023 Hepatitis C Screening 11/05/2023 Social Influencers of Health Screening 11/05/2023 COVID-19 Vaccine (1 - 2023-2 5 season) 2024 Depression Screening 10/11/2024 Diabetes: Annual Urine Albumin-Creatinine Ratio (uACR) 04/05/2025 Diabetes: Blood Sugar Contro l Test (HGBA1C) 04/05/2025 Influenza Vaccine (#1) 2025 HIB Vaccines Aged Out No longer eligi ble based on patient's age to complete this topic HPV Vaccines Aged Out No longer eligi ble based on patient's age to complete this topic Hepatitis A Vaccines Aged Out No long er eligible based on patient's age to complete this topic IPV Vaccines Aged Out No longer eligi ble based on patient's age to complete this topic MMR Vaccines Aged Out No longer eligi ble based on patient's age to complete this topic Meningococcal ACWY Vaccine Aged Out N o longer eligible based on patient's age to complete this topic Meningococcal B Vaccine Aged Out No l onger eligible based on patient's age to complete this topic RSV Immunization Patients Un darrin 20 months Aged Out No longer eligible b ased on patient's age to complete this topic Varicella Vaccines Aged Out No longer eligible based on patient's age to complete this topic Insurance MEDICAID - [place] Care Teams Plastic Injection Mold Maker Relationship Specialty Start Date End Date Kiersten Hankins MD [address] [phone] PCP - General Internal Medicine 04/04/25
[2025-05-18 14:14] VITALS: BP 118/76; PULSE 92; O2SAT 99; BMI 28.9
--- NOTE | 2025-05-18 14:14 | MHC.OFFVIS ---
Vital Signs 05/18/25 14:14 Height 5 ft 6 in Weight 179 lb 6 oz BMI 28.9 BP 118/76 Blood Pressure Location Rt brachial Position Sitting Pulse 92 Pulse Source Pulse Oximeter Pulse Oximetry (%) 99 Oxygen Delivery Method Room Air Intake Visit Reasons: Asthma Allergies No Known Allergies (No Known Allergies*) Allergy (Verified 05/18/25 14:18) HPI HPI Asthma: Details: Elaine is a pleasant 39 year old female, never smoker everyday marijuana, with underlying asthma and DMII. She was referred by PCP for management of asthma. She reports long history of asthma and recently started on Symbicort with good effect. She did discontinue use as her symptoms were better controlled and currently denies any symptoms. She denies prior hospitalizations/intubations related to respiratory distress. She endorses seasonal allergies, no recent allergy testing and currently on zyrtec with moderate effect. She reports mother, smoker, with emphysema, otherwise no pertinent family history. She endorses second hand smoke exposure as a child. She has various pets at home including cats and birds. She denies any occupational exposures. [facility] Medical History (Updated 05/21/25 @ 09:06 by Leatha Thomas NP) Dislocated shoulder Diabetes Asthma Herpes genitalis in women Surgical History (Updated 05/22/22 @ 13:20 by NAEL Brown) H/O shoulder surgery History of ankle surgery Family History Father Diabetes HTN (hypertension) Dementia Mother Diabetes HTN (hypertension) Anxiety Maternal Aunt Cancer Paternal Grandfather Alzheimer disease Social History (Updated 05/18/25 @ 14:18 by Mandi Hinojosa CMA) Household Members: Children Alcohol intake: never Patient Tobacco Use Status: Never used Tobacco Substance Use Type: Marijuana Current occupation: Right Handed - [employer] Sexual orientation: Straight/Heterosexual Gender identity: Female Female Reproductive History Menstrual Age of Menarche: 15 Review of Systems Const Denies chills, Denies excessive sweating, Denies fever(s), Denies headache(s) and Denies night sweats Eyes Denies dry eyes, Denies irritation and Denies itchy eyes ENT Reports Normal hearing present, Denies headache(s), Denies nasal congestion, Denies nasal discharge, Denies post nasal drip and Denies sore throat Card Denies chest pain, Denies chest pain at rest, Denies chest pain with activity, Denies claudication, Denies leg edema, Denies dyspnea, Denies dyspnea on exertion, Denies orthopnea and Denies paroxysmal nocturnal dyspnea Resp Denies chest congestion, Denies cough, Denies excessive phlegm production, Denies pain on inspiration, Denies pain with cough, Denies dyspnea, Denies dyspnea on exertion, Denies stridor and Denies wheezing Musc Denies myalgias Neuro Reports Normal hearing present and Denies headache(s) Endo Denies excessive sweating Rich/Lymph Denies lymphadenopathy Aller/Immun Denies itchy eyes, Denies seasonal rhinorrhea and Denies wheezing Physical Exam Vital Signs: Last Vital Signs Pulse 92 05/18/25 14:14 BP 118/76 05/18/25 14:14 Pulse Ox 99 05/18/25 14:14 Oxygen Delivery Method Room Air 05/18/25 14:14 BMI result Body Mass Index 28.9 Const General: cooperative, healthy appearing, comfortable, no acute distress, well developed and alert Orientation/consciousness: patient oriented x3 Limitations: no limitations HEENT Head: Yes normal to inspection, Yes normocephalic and Yes atraumatic Ears: hearing grossly normal bilaterally and external ears normal Eyes General: appearance normal, both eyes and all related structures Eyelids: Yes eyelids normal Sclerae: sclerae normal EOM: EOMs intact bilaterally Neck Neck: Yes normal visual inspection and Yes no lymphadenopathy Lymphatic: no lymphadenopathy noted Chest Chest palpation & inspection: normal inspection of the chest Resp Effort & Inspection: normal respiratory effort, able to speak in complete sentences, no audible wheezes, no cough, no stridor, not tachypneic, no tripod positioning and no use of accessory muscles Auscultation: clear to auscultation bilaterally Cardio Jugular venous distension: no JVD Rate: regular rate Rhythm: regular rhythm Skin Other: warm, dry General skin exam: no rashes or lesions noted Neuro General: patient oriented x3 Cranial nerves: Yes Normal hearing present Cognition (Neuro): normal cognition Gait exam (Neuro): Normal gait present Extrem General: Yes normal to inspection, Yes capillary refill normal, Yes no clubbing, cyanosis or edema and Yes no pedal edema Psych Appearance: grossly normal and well kempt Speech and movement: Normal speech and movement present and Clear speech present Affect: normal affect Attitude: cooperative Thought process: Normal thought process present Thought content: Normal thought content present Insight: Good insight present (Psych) Judgement: Good judgement present (Psych) Assessment & Plan Assessment & Plan (1) Asthma: Code(s): J45.909 - Unspecified asthma, uncomplicated Category: Medical (2) Environmental allergies: Code(s): Z91.09 - Other allergy status, other than to drugs and biological substances Category: Medical Plan Elaine presents for pulmonary evaluation for known history of asthma. Encouraged patient to restart Symbicort 80 mcg 1 inhalation BID. She is aware if symptoms become less controlled to increase to 2 inhalations BID. PCP placed order for PFT which is scheduled in July. Will send for RAST including bird panel to assess for triggers. All questions were answered and patient is in agreement of plan. Will follow up to review results or sooner if needed. Orders: Orders Complete Blood Count Auto Diff 05/18/25 Z91.09 - Other allergy status, other than to drugs and biological substances Resp Allergy Profile Region I 05/18/25 Z91.09 - Other allergy status, other than to drugs and biological substances Immunoglobulin E 05/18/25 Z91.09 - Other allergy status, other than to drugs and biological substances Other Ref Test - Misc 05/18/25 Z91.09 - Other allergy status, other than to drugs and biological substances Coding Level of Care Code New Pt Level 4 (36547) Diagnoses Asthma J45.909 Environmental allergies Z91.09
== END 2025-05-18 15:04 | disposition home or self-care (01) ==
LOC: HO.HPSW 14:01
PROVIDERS: PCP Internal Medicine; Referring Provider Registered Nurse; Visit Provider Nurse Practitioner Family
DX: J45.909 Unspecified asthma, uncomplicated (principal); Z91.09 Other allergy status, other than to drugs and biological substances
CPT/HCPCS: 99204

== ENCOUNTER 2025-07-13 12:23 | Outpatient (REF) | payer MEDICAID, SELFPAY ==
--- NOTE | 2025-07-13 | PFT_ITS ---
Indication: Asthma Spirometry FEV1 to FVC 65% pre bronchodilators and 72% post bronchodilators; FEV1 2.93 L; FVC 4.07 L. This is a significant response to bronchodilators noted. Lung Volumes Total lung capacity 93% predicted Diffusion Capacity DLCO 108% predicted Comparison None Interpretation There is a reversible obstructive ventilatory defect consistent with a diagnosis of asthma. There is a significant response to bronchodilators noted. Significant small airways disease also related to asthma. Lung volumes and diffusing capacity within normal limits. Clinical correlation warranted. MTDD
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
--- OUTSIDE RECORDS SUMMARY | 2025-07-13 13:06 | XMS_ITS | Encounter Summary ---
Author Organization [email or web address] Address [address] [facility] [address] [place] [address] Care Team Providers Care Hairmasters Manager Name Role Phone Kiersten Hankins MD Primary Care Provide r Reason for Visit * Reason Onset Date Comments Med Refill No Show 03/30/2025 Pt no show for s ick on site Encounter Details Date Type Department Care Team ([facility] st Contact Info) Description 03/30/2025 Refill [facility] [address] [place], [place] [phone] Kiersten Hankins MD [address] [place] [address] Type 2 diabetes mellitus with hyperglycemia, with long-term current use of insulin ([facility]) Social History Tobacco Use Types Packs/Day Years [...] Care Team (Late st Contact Info) Description 08/27/2025 9:30 AM EST Office Visit [facility] [address] [place] [address] Debbie Fofana, OD [address] [place] [address] documented as of this encounter Visit Diagnoses Diagnosis Type 2 diabetes mellitus with hyperglycemia, with long-term current use of insulin (HCC) documented in this encounter Additional Health Concerns Assessment Noted Time PHQ-9 Depression Total Score: 0 01/05/20 25 1:18 PM EDT documented as of this encounter Care Teams Hairmasters Manager Relationship Specialty Start Date End Date Kiersten Hankins MD [address] [place] [address] PCP - General Internal Medicine 05/20/23 documented as of this encounter
--- OUTSIDE RECORDS SUMMARY | 2025-07-13 13:07 | XMS_ITS | Encounter Summary ---
Author Organization [employer] Address [address] [facility] 7 [place] [address] Care Team Providers Care Pet Care Assistant Name Role Phone Kiersten Hankins MD Primary Care Provide r Reason for Visit * Reason Onset Date Comments Med Refill 08/29/2024 Encounter Details Date Type Department Care Team ([facility] st Contact Info) Description 08/29/2024 Telephone [facility] MEDICINE [address] [place], [place] [phone] Kiersten Hankins MD [address] [place] [address] Med Refill Social History Tobacco Use Types [...] Description 08/27/2025 9:30 AM EST Office Visit [facility] OPTOMETRY [address] [place] [address] Debbie Fofana, OD [address] [place] [address] documented as of this encounter Visit Diagnoses Not on filedocumented in this encounter Additional Health Concerns Assessment Noted Time PHQ-9 Depression Total Score: 9 03/24/20 24 3:22 PM EDT documented as of this encounter Care Teams Pet Care Assistant Relationship Specialty Start Date End Date Kiersten Hankins MD [address] [place] [address] PCP - General Internal Medicine 05/20/23 documented as of this encounter
--- OUTSIDE RECORDS SUMMARY | 2025-07-13 13:07 | XMS_ITS | Encounter Summary ---
Author Organization [employer] Address [address] [facility] [address] [place] [address] Care Team Providers Care Cushion Stuffer Name Role Phone Kiersten Hankins MD Primary Care Provide r Reason for Visit * Reason Comments Med Change Request Encounter Details Date Type Department Care Team ([facility] st Contact Info) Description 01/16/[address] [facility] MEDICINE [address] [place], [place] [phone] Kiersten Hankins MD [address] [place] [address] Type 2 diabetes mellitus with hyperglycemia, with long-term current use of insulin ([facility]) Social History Tobacco Use Types Packs/Day Years Used Date Smoking Tobacco: Never Passive Smoke Exposure: Never Smokeless Tobacco: Never Depression Answer Date Recorded Patient Health Questionnaire-9 Score 0 01/04/2025 Patient Health Questionnaire-9 Score 0 01/04/2025 Last PHQ-9: Questionnaire Data Not on file 0 01/04/2025 Housing Stability Answer Date Recorded What is your housing situation today? I have alyssa lamar 01/04/[address] you [...] AM EDT documented as of this encounter Plan of Treatment Upcoming Encounters Date Type Department Care Team (Late st Contact Info) Description 08/27/2025 9:30 AM EST Office Visit [facility] OPTOMETRY [address] [place] [address] Debbie Fofana, OD [address] [place] [address] documented as of this encounter Visit Diagnoses Diagnosis Type 2 diabetes mellitus with hyperglycemia, with long-term current use of insulin (HCC) documented in this encounter Additional Health Concerns Assessment Noted Time PHQ-9 Depression Total Score: 0 01/05/20 25 1:18 PM EDT documented as of this encounter Care Teams Cushion Stuffer Relationship Specialty Start Date End Date Kiersten Hankins MD [address] [place] [id number] PCP - General Internal Medicine 05/20/23 documented as of this encounter
--- OUTSIDE RECORDS SUMMARY | 2025-07-13 13:07 | XMS_ITS | Clinical Summary ---
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 [facility]. It has not been cleared or approvedby the U.S. Food and Drug Administration. This assayhas been validated pursuant to the CLIA regulationsand is used for clinical purposes.THIS TEST WAS PERFORMED AT:[facility] [place] [id number] GEORGE MD 05/18/2025 3:10 PM EDT 05/18/2025 5:52 PM EDT us Generic External Data Provider LAB BLOOD ORDERAB LES Final Result [facility] [address] [place] [phone] * Hepatitis A,B,C Profile (05/18/2025 3:10 PM EDT) Hepatitis A IgM Nonreactive Nonreactive [facility] Comment:IgM antibodies to PATEL V not detected; does not exclude earlyacute or recovered HAV infection. ~Hepatitis B Surface Antibody NONREACTIVE Nonreactive [facility] Comment:Nonreactive: < 8.00 mIU/mL Hepatitis B Core Antibody Nonreactive Nonreactive [facility] Hepatitis C Antibody Nonreactive Nonreactive [facility] Comment:Antibodies to HCV no t detected; does not exclude early acuteHCV infection. Hepatitis B Surface Ag Negative Negative [facility] Blood Venous blood specimen / Unknown 05/18/2025 3:10 PM EDT 05/18/2025 5:52 PM EDT us Kiersten Herman MD LAB BLOOD ORDERABLES Final Result [facility] [address], [place] [phone] * (ABNORMAL) CBC auto differential (05/18/2025 3:10 PM EDT) White Blood Count 6.0 4.8 - 10.8 X10*3/uL [facility] Red Blood Count 4.82 4.20 - 5.50 X10*6/uL [facility] Hemoglobin 13.2 12.0 - 16.0 g/dl [facility] Hematocrit 39.5 37.0 - 47.0 % [facility] Mean Corpuscular Volume 82.0 80.0 - 98.0 fL [facility] Mean Corpuscular Hemoglobin 27.4 27.0 - 33.0 pg [facility] Mean Corpuscular HGB Conc 33.4 31.0 - 35.0 g/dl [facility] Red Cell Distribution Width 13.1 11.0 - 16.0 % [facility] Platelet Count 225 160 - 400 X10*3/uL [facility] Mean Platelet Volume 10.8 9.4 - 12.3 fL [facility] Neutrophils Percent Auto 45.0 45 - 73 % [facility] Imm Gran Pct Auto 0.3 0.0 - 0.4 % [facility] Lymphocytes Percent Auto 39.3 20 - 40 % [facility] Monocytes Percent Auto 8.7 2 - 11 % [facility] Eosinophils Percent Auto 6.2(H) 0 - 4 % [facility] Basophils Percent Auto 0.5 0 - 2 % [facility] NRBC Pct Auto 0.0 0.0 - 0.2 /100WBC [facility] Neutrophils Absolute Auto 2.7 2.0 - 8.3 x10*3/uL [facility] Imm Gran Abs Auto 0.02 0.00 - 0.03 X10*3/uL [facility] Lymphocytes Absolute Auto 2.4 1.2 - 4.9 X10*3/uL [facility] Monocytes Absolute Auto 0.5 0.1 - 1.2 X10*3/uL [facility] Eosinophils Absolute Auto 0.4 0.0 - 0.4 X10*3/uL [facility] Basophils Absolute Auto 0.0 0.0 - 0.2 X10*3/uL [facility] NRBC Abs Auto 0.000 0.0 - 0.012 X10*3/uL [facility] 05/18/2025 3:10 PM EDT 05/18/2025 5:49 PM EDT Generic External Data Provider LAB BLOOD ORDERAB LES Final Result Performing Organization Address [facility]/ZIP Co de Phone Number [facility] [address] [place] [phone] * (ABNORMAL) Immunoglobulin E (05/18/2025 3:10 PM EDT) Pathologist [facility] Immunoglobulin E 369(A) <WF=392 kU/L [facility] Comment:THIS TEST WAS PERFOR MED AT:[email or web address] [address] [phone] GEORGE MD 05/18/2025 3:10 PM EDT 05/18/2025 5:52 PM EDT Generic External Data Provider LAB BLOOD ORDERAB LES Final Result Performing Organization Address [facility]/ZIP Co de Phone Number [facility] [address] [place] [phone] * (ABNORMAL) Comprehensive Metabolic Panel (05/18/2025 3:10 PM EDT) Pathologist [facility] Sodium 137 135 - 145 mmol/L [facility] Potassium 3.7 3.3 - 5.1 mmol/L [facility] Chloride 103 96 - 108 mmol/L [facility] Carbon Dioxide 26 22 - 29 mmol/L [facility] Anion Gap 12 12 - 20 [facility] Urea Nitrogen (BUN) 13 9 - 16 mg/dL [facility] Creatinine, Serum 0.58 0.5 - 1.4 mg/dL [facility] Estimated Glomerular Filt Rate >60 [facility] Comment:Chronic Kidney Disea se: Estimated GFR < 60 mL/min/1.15c1Mrgipq Kidney Disease: Estimated GFR < 15 mL/min/1.73m2 Glucose 185(H) 60 - 115 mg/dL [facility] Calcium 9.4 8.4 - 10.2 mg/dL [facility] Bilirubin, Total 0.3 0.0 - 1.0 mg/dL [facility] Aspartate Amino Transferase 23 5 - 31 U/L [facility] Alanine Aminotransferase 27 0 - 31 U/L [facility] Total Protein 7.7 6.5 - 8.0 g/dL [facility] Albumin Level 4.6 3.5 - 5.0 g/dL [facility] Alkaline Phosphatase 97 39 - 117 U/L [facility] Blood Venous blood specimen / Unknown 05/18/2025 3:10 PM EDT 05/18/2025 5:49 PM EDT us Kiersten Herman MD LAB BLOOD ORDERABLES Final Result Performing Organization Address City/State/[facility] Co de Phone Number [facility] [address] [place] [phone] * (ABNORMAL) POCT HGB A1C (04/02/2025 10:54 AM EDT) Hemoglobin A1C 8.9(A) 4.0 - 6.0 % QC Media Lot # [id number] Lot# Expiration Date Blood 04/02/2025 10:5 4 AM EDT us Kiersten Herman MD POINT OF CARE TEST EN TER/EDIT ORDERABLES Final Result * BI Mammogram Diagnostic Tomosynthesis Bilateral (03/06/2025 10:00 AM EDT) Anatomical Region Laterality Modality Breast Bilateral Mammography 03/06/2025 10:0 0 AM EDT Narrative 03/06/2025 11:02 AM EDT [facility] [address] [place] [address] Mammography Report Signed Patient: Elaine Meek MR#: [id number] : 1985 Acct:[id number] Age/Sex: 39 / F ADM Date: 03/06/25 Loc: HO.MAMMO Attending Dr: Kiersten Herman MD Ordering Physician: Kiersten Hankins MD Results: 3.12MProbably Benign Finding - 12 month F/U Suggested Date of Service: 03/06/25 Follow Up: 12 month diagnos tic follow up Procedure(s): MM tomosynthesis diagnostic BI Accession Number(s): [id number] cc: Kiersten Hankins MD EXAMINATION: MM DIAGNOSTIC DIGITAL BREAST TOMOSYNTHESIS, BILATERAL Right limited ultrasound. CLINICAL INFORMATION: Right yellowish clear nipple discharge follow-up recommended. COMPARISON: Mammography: Comparison is made with relevant prior exams. TECHNIQUE: Digital breast mammography with tomosynthesis is performed in both the craniocaudal and mediolateral oblique views along with computer-aided detection (CAD). FINDINGS: There are scattered areas of fibroglandular density (ACR BI-RADS breast composition Category b). There are no significant masses, abnormal calcifications, or other abnormalities. Targeted color Doppler ultrasound in the right breast scanning in the retroareolar region demonstrates an ectatic duct. There is no intraductal mass and minimal ductal debris. Results are provided to the patient at time of visit by the technologist. MM/MM tomosynthesis diagnostic BI IMPRESSION: Left: Negative. Right: Ectatic duct with minimal internal debris in the retroareolar region at site of patient's yellow nipple discharge. Recommend ultrasound follow-up in one year when the patient will be due for bilateral mammography. Patient has a family history of breast cancer including maternal aunt. Breast MRI could be considered for further evaluation. Breast MRI would need to be ordered by the patient's providing clinician. ASSESSMENT: BI-RADS BI-RADS 3 - Probably benign finding(s) - 12 month follow-up suggested RECOMMENDATION: 12 month diagnostic follow up This patient's information was entered into a reminder system with a target due date for their next mammogram. Electronically signed by: Linda Amato DO 03/06/2025 10:59 AM EDT RP Dictated By: Linda Amato DO Signed By: <Electronically signed by Linda Amato DO in OV> 03/06/25 1059 DD/ 1000 TD/TT: 03/06/25 1021 Audit Mgr: Procedure Note Donotuseinterpreter, Image - [facility]/06/20[facility] [address] [place] [address] Mammography Report Signed Patient: Elaine MeekMR#: [id number] : 1985Acct:[id number] Age/Sex: 39 / FADM Date: 03/06/25 Loc: HO.MAMMO Attending Dr: Kiersten Herman MD Ordering Physician: Kiersten Hankins MD Results: 3.12MProbably Benign Finding - 12 month F/U Suggested Date of Service: 03/06/25Follow Up: 12 month diagnos tic follow up Procedure(s): MM tomosynthesis diagnostic BI Accession Number(s): [id number] cc: Kiersten Hankins MD EXAMINATION: MM DIAGNOSTIC DIGITAL BREAST TOMOSYNTHESIS, BILATERAL Right limited ultrasound. CLINICAL INFORMATION: Right yellowish clear nipple discharge follow-up recommended. COMPARISON: Mammography: Comparison is made with relevant prior exams. TECHNIQUE: Digital breast mammography with tomosynthesis is performed in both the craniocaudal and mediolateral oblique views along with computer-aided detection (CAD). FINDINGS: There are scattered areas of fibroglandular density (ACR BI-RADS breast composition Category b). There are no significant masses, abnormal calcifications, or other abnormalities. Targeted color Doppler ultrasound in the right breast scanning in the retroareolar region demonstrates an ectatic duct. There is no intraductal mass and minimal ductal debris. Results are provided to the patient at time of visit by the technologist. MM/MM tomosynthesis diagnostic BI IMPRESSION: Left: Negative. Right: Ectatic duct with minimal internal debris in the retroareolar region at site of patient's yellow nipple discharge. Recommend ultrasound follow-up in one year when the patient will be due for bilateral mammography. Patient has a family history of breast cancer including maternal aunt. Breast MRI could be considered for further evaluation. Breast MRI would need to be ordered by the patient's providing clinician. ASSESSMENT: BI-RADS BI-RADS 3 - Probably benign finding(s) - 12 month follow-up suggested RECOMMENDATION: 12 month diagnostic follow up This patient's information was entered into a reminder system with a target due date for their next mammogram. Electronically signed by: Linda Amato DO 03/06/2025 10:59 AM EDT Dictated By: Linda Amato DO Signed By: <Electronically signed by Linda Amato DO in OV> 03/06/25 1059 DD/ 1000 TD/TT: 03/06/25 1021 Audit Mgr: us Kiersten Herman MD IMG BI PROCEDURES Fin al Result * (ABNORMAL) Lipid Panel, Standard (01/03/2024 1:33 PM EDT) Triglycerides 213(H) <150 mg/dL [facility] Comment:Desirable Triglyceri de: less than 150 mg/dLBorderline High Triglyceride 150-199 mg/dLHigh Triglyceride: 200-499 mg/dLVery High Triglyceride: greater than or equal to 5OO mg/dL Cholesterol 141 <200 mg/dL [facility] Comment:Desirable Cholestero l: less than 200 mg/dLBorderline High Cholesterol: 200-239 mg/dLHigh Cholesterol: greater than 239 mg/dL LDL Cholesterol Calculated 73 <100 mg/dL [facility] Comment:Desirable LDL: less than 100 mg/dLNear Optimal/Above Optimal LDL: 110- 129 mg/dLBorderline High LDL: 130-159 mg/dLHigh LDL: 160-189 mg/dLVery High LDL: greater than or equal to 190 mg/dL HDL Cholesterol 26(L) >40 mg/dL [facility] Comment:Desirable HDL: great er than 40 mg/dL Note: This HDL assay may give artificially low results in patients with liver disease. Blood Venous blood specimen / Unknown 01/03/2024 1:33 PM EDT 01/03/2024 3:55 PM EDT us Kiersten Herman MD LAB BLOOD ORDERABLES Final Result [facility] [address] [place] [phone] * HIV 1/2 ANTIGEN/ANTIBODY,FOURTH GENERATION W/RFL (03/02/2022 11:00 AM EDT) [facility] HIV-1/2 ANTIGEN AND ANTIBODIES, 4TH GENERATION W/ REFLEX NON-REACT BHARGAV NON-REACT BHARGAV [facility] Comment: HIV-1 antigen and HIV-1/HIV-2 antibodies were not detected. There is no laboratory evidence of HIV infection. PLEASE NOTE: This information has been disclosed to you from records whose confidentiality may be protected by state law. If your state requires such protection, then the state law prohibits you from making any further disclosure of the information without the specific written consent of the person to whom it pertains, or as otherwise permitted by law. A general authorization for the release of medical or other information is NOT sufficient for this purpose. For additional information please refer to http://education.[employer]faq/ZUN640 (This link is being provided for informational/ educational purposes only.) The performance of this assay has not been clinically validated in patients less than 2 years old. 03/02/2022 11:0 0 AM EDT us Lauri LambP LAB BLOOD ORDERABLES Final Result [facility] [address] * HPV E6/E7 RFLX MAHENDRA 16 18/45 (12/18/2020 3:43 PM EST) [facility] HPV mRNA E6/E7 rflx Not Detected Not Detected [facility] Comment: Methodology: Delivery Supervisor-Mediated Amplification This assay detects E6/E7 viral messenger RNA (mRNA) from 14 high-risk HPV types (16,18,31,33,35,39,45,51,52,56,58,59,66,68). The analytical performance characteristics of this assay have been determined by [employer]. The modifications have not been cleared or approved by the FDA. This assay has been validated pursuant to the CLIA regulations and is used for clinical purposes. For additional information, please refer to http://education.[employer]/faq/LGR697x3 (This link if provided for information/ educational purposes only.) THIS TEST WAS PERFORMED AT: [facility] [address] [place] [address],[place] [address] DACIA GEORGE MD 12/18/2020 3:43 PM EST us Historical Provider HISTORICAL/NON ORDERABLE LABS Final Result [facility] [address] * Hm Pap Smear (12/18/2020) us Historical Provider HEALTH MAINTENANCE Final Result from Last 3 Months or Most Recently Relevant to Health Maintenance Insurance [facility] C3 Care Teams Assembler [employer] Relationship Specialty Start Date End Date Kiersten Hankins MD [address] [place] [phone] PCP - General Internal Medicine 05/20/23
--- OUTSIDE RECORDS SUMMARY | 2025-07-13 13:07 | XMS_ITS | Clinical Summary ---
Author Organization [address] [place] [address] Address [address] [place] [phone] Phone Care Team Providers Care Customer Contact Representative Name Role Phone Kiersten Hankins MD Primary [...] Health Maintenance Due Date Last Done Comments DTaP,Tdap,and Td Vaccines (1 - Tdap) 2006 Hepatitis B Vaccines (1 of 3 - 19+ 3-dose series) 2006 Pneumococcal Vaccine: Pediat rics (0 to 5 Years) and At-Risk Patients (6 to 49 Years) (1 of 2 - PCV) 2006 Cervical Cancer Screening: P ap Smear 2008 HPV Vaccines (1 - 3-dose SCD M series) 2014 HIV Screening 11/05/2023 Hepatitis C Screening 11/05/2023 Social Influencers of Health Screening 11/05/2023 Depression Screening 10/11/2024 COVID-19 Vaccine ( - 2023-2 5 season) 2025 Influenza Vaccine (#1) 2025 RSV Immunization Adult Patie nts (1 - 1-dose 75+ series) 2062 HIB Vaccines Aged Out No longer eligi [...] topic Insurance [place]ICA[place] - [place] Care Teams Customer Contact Representative Relationship Specialty Start Date End Date Kiersten Hankins MD [address] [phone] PCP - General Internal Medicine 04/04/25
--- OUTSIDE RECORDS SUMMARY | 2025-07-13 13:07 | XMS_ITS | Encounter Summary ---
Author Organization [employer] Address [address] [facility] [address] [place] [address] Care Team Providers Care Entertainment Production Professional Name Role Phone Kiersten Hankins MD Primary Care Provide r Encounter Details Date Type Department Care Team (Late st Contact Info) Description 07/06/2023 Orders Only [facility] MEDICINE [address] [place], [place] [phone] Provider, MD Ezequiel Social History Tobacco Use Types Packs/Day Years Used Date Smoking Tobacco: Never Smokeless Tobacco: Never Depression Answer Date Recorded Patient Health Questionnaire-9 Score 5 05/20/2023 Depression Answer Date Recorded Patient Health Questionnaire-2 Score 3 05/20/2023 Comments Unknown Sex and Gender Information Value [...] Description 08/27/2025 9:30 AM EST Office Visit [facility] OPTOMETRY [address] [place], [place] [phone] Debbie Fofana, OD [address] [place], [place] [phone] documented as of this encounter Procedures Procedure Name Priority Date/Time Associated Diagnosis Comments SARS COV2/INFLUENZA A/B AND RSV RNA QL NAAT Routine 07/12/2023 2:56 PM EDT CULTURE, THROAT Routine 07/12/2023 2:56 PM EDT HM PAP/HPV Routine 12/18/2020 documented in this encounter Results * Culture, Throat (07/12/2023 2:56 PM EDT) Throat Structure of anterior region of neck / Unknown 07/12/2023 2:56 PM EDT 07/13/2023 10:42 AM EDT Comment:Throat Narrative [facility] - 07/16/2023 12:33 PM EDT Throat Culture No Group A Beta-hemolytic Streptococci isolated. Specimen Source: Throat [facility] Exter nal Provider LAB MICROBIOLOGY - GENERAL ORDERABLES Final Result [facility] [address] [place] [address] [phone] * SARS-CoV-2 RNA, Influenza A/B, and RSV RNA, Ql NAAT (07/12/2023 2:56 PM EDT) Influenza A PCR NEGATIVE Negative [facility] Influenza B PCR NEGATIVE Negative [facility] Resp Syncy Virus RNA Qual PCR NEGATIVE Negative [facility] SARS COV2 PCR NEGATIVE Negative [facility] Comment:All test results mus t be correlated with clinical findings.Negative results do not preclude SARS-CoV2, influenza Avirus, influenza B virus and/or RSV infectionand should not be used as the sole basis for treatment orother patient management decisions. Negative results must becombined with clinical observations, patient history, andepidemiological information.This test has not been evaluated for monitoring treatment ofinfection.This test has been authorized by the FDA under an EmergencyUse Authorization (EUA) for use by authorized laboratories.Testing performed on the [employer] GeneXpert utilizingreal-time RT-PCR.All SARS CoV2 and positive influenza A/B results arereported to [facility]. 07/12/2023 2:56 PM EDT 07/13/2023 10:42 AM EDT [facility] Exter nal Provider LAB MICROBIOLOGY - GENERAL ORDERABLES Final Result [facility] [address] [place] [address] [phone] * Hm Pap Smear (12/18/2020) Historical Provider HEALTH MAINTENANCE Final Result documented in this encounter Visit Diagnoses Not on filedocumented in this encounter Additional Health Concerns Assessment Noted Time PHQ-9 Depression Total Score: 5 05/20/20 23 2:16 PM EDT documented as of this encounter Care Teams Entertainment Production Professional Relationship Specialty Start Date End Date Kiersten Hankins MD [address] [place] [phone] PCP - General Internal Medicine 05/20/23 documented as of this encounter
[2025-07-13 13:38] VITALS: PULSE 84; O2SAT 99
== END 2025-07-13 12:24 | disposition home or self-care (01) ==
LOC: HO.RESP 12:23
PROVIDERS: PCP Internal Medicine; Visit Provider Registered Nurse
DX: J45.40 Moderate persistent asthma, uncomplicated (principal)
CPT/HCPCS: 94010; 94640; 94727; 94729

== ENCOUNTER → 2025-07-13 13:02 | Outpatient (BNV) | payer MEDICAID, SELFPAY | PROVIDERS: PCP Internal Medicine; Visit Provider Hospitalist | DX: J45.909 Unspecified asthma, uncomplicated (principal) | CPT/HCPCS: 94060; 94727; 94729 ==